=== PATIENT | female | born 1940 | race Caucasian/White ===

== ENCOUNTER → 2021-10-13 11:26 | Outpatient (CLI) | payer MEDICARE, SELFPAY ==
--- NOTE | ~2021-10-13 | DEXA_ITS ---
Bone Density Report Name: LINA SIMS Age: 81 Sex: Female Ethnicity: White Date of : 1940 Indication: postmenopausal; screening for osteoporosis; parental hip fracture; height loss; Referring Provider: Tamia Bryant Study: Bone densitometry was performed. Exam Date: October 13, 2021 Accession number: [id number] Bone Density: Region BMD T-score Z-score Classification AP Spine (L2, L3, L4) 1.221 1.3 4.0 Normal Femoral Neck (Left) 0.845 0.0 2.3 Normal Total Hip (Left) 0.981 0.3 2.4 Normal Femoral Neck (Right) 0.900 0.5 2.8 Normal Total Hip (Right) 0.998 0.5 2.5 Normal Total Hip Mean 0.990 0.4 2.5 Normal World Health Organization criteria for BMD impression classify patients as: Normal (T-score at or above -1.0), Osteopenia (T-score between -1.0 and -2.5), or Osteoporosis (T-score at or below -2.5). 10-year Fracture Risk: FRAX not reported because: All T-scores for Spine Total, Hip Total, Femoral Neck at or above -1.0 Previous Exams: Region Exam Age BMD T-score BMD Change BMD Change Date g/cm2 vs Baseline vs Previous AP Spine(L2, L3, L4) 10/13/2021 81 1.221 1.3 0.061* -0.072* 02/14/2018 78 1.293 1.9 0.133* 0.049* 10/04/2014 74 1.244 1.5 0.084* 0.084* 02/11/2009 68 1.160 0.7 Total Hip(Left) 10/13/2021 81 0.981 0.3 0.036* 0.017 02/14/2018 78 0.964 0.2 0.019 -0.025 10/04/2014 74 0.990 0.4 0.044* 0.044* 02/11/2009 68 0.945 0.0 Total Hip(Right) 10/13/2021 81 0.998 0.5 -0.001 -0.022 02/14/2018 78 1.020 0.6 0.021 0.006 10/04/2014 74 1.014 0.6 0.016 0.016 02/11/2009 68 0.999 0.5 *Denotes significance at 95% confidence level, LSC for AP Spine = 0.022 g/cm2, LSC for Total Hip = 0.027 g/cm2 Clinical Information Provided by Patient: Parent has had a hip fracture Has used the following medications: Vitamin D Patient maximum height was 65.0 Menopause Age: 52 No regular weight bearing exercise Drinks caffeinated beverages Onset of menses at age 14 Number of children 2 Impression: The patient has normal bone mass. The patient has risk factors, including: parental hip fracture. The BMD for the AP Spine(L2, L3, L4) decreased, changing by -0.072 since the last DXA exam. Discussion: LOW RISK OF FRACTURE; BONE
--- NOTE | ~2021-10-13 | MM_ITS ---
EXAMINATION: MM screening raphael BI w trudi HISTORY: Screening mammogram TECHNIQUE: Craniocaudal and mediolateral oblique 3-D tomosynthesis images were obtained and synthetic 2-D images were generated. CAD analysis was submitted and interpreted. COMPARISON: No prior mammogram is available for comparison at this institution. BREAST PARENCHYMAL COMPOSITION: There are scattered areas of fibroglandular density. FINDINGS: Scattered benign-appearing calcifications are present. There is no evidence of suspicious m ass, calcification, or architectural distortion to suggest malignancy in either breast. IMPRESSION: 1. No mammographic evidence of malignancy. 2. Recommend routine screening mammography in one year. BI-RADS Category 2: Benign finding(s). Reviewed, dictated and finalized at location A. [place] SALES REPRESENTATIVE
== END ==
PROVIDERS: PCP Family Medicine; Visit Provider Student in an Organized Health Care Education/Training Program
DX: Z12.31 Encounter for screening mammogram for malignant neoplasm of breast (principal); Z78.0 Asymptomatic menopausal state
CPT/HCPCS: 77063; 77067; 77080

== ENCOUNTER 2022-02-12 16:45 | Outpatient (RCR) | payer MEDICARE, SELFPAY ==
--- NOTE | 2022-01-02 14:37 | PTOPEVAL ---
PHYSICAL THERAPY EVALUATION AND PLAN OF CARE 01-02-22 Thank you for referring Mariana Jones to [facility] for the diagnosis of gait abnormality. She is scheduled to be seen for therapy? 2 x/week for 3 weeks. Please review, sign, date and return this plan of care LAKE. I agree with and certify that the following plan of care is medically necessary. Referring Physician Date Attending Provider: Yvonne Noova MD Past Medical History Source of Past Medical History Patient Neurological History Hx Neurological Disorders No Significant History Cardiovascular History Hx Hypertension Yes: meds Respiratory History Hx Other Respiratory Disorders Yes: neuorgenetic cough- meds control Gastrointestinal History Hx Gastroesophageal Reflux Disease Yes Hx Hernia Yes: surgical repair Hx Other Gastrointestinal Disorders Yes: have diarrhea when nervous Genitourinary History Hx Genitourinary Disorders No Significant History Musculoskeletal History Hx Orthopedic Surgery Yes: B TKR and B shoulder replacements Endocrine History Hx Endocrine Disorders No Significant History Other History 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 Hx Other Medical Conditions Yes: lymphedema of B LE's; obesity-weight 246#, lost 52# recently Evaluation Information Diagnosis gait abnormality Onset Jul 2021 Subjective Information gradually started having more Query Text:As Reported By Patient/ problems with walking and Family balance; have not had any falls, but have had loss of balance with turning around; Prior Level of Function Activity Level (Last 3 Months) Occupation retired Activity of Daily Living Ability Independent Indoor/Home Mobility Independent Community Mobility Independent Stairs Ability Independent Functional Cognition (Planning, Shopping Independent , Taking Medications) Cooking Yes Cleaning Yes Laundry Yes Shopping NO Driving Yes Home Setting Home Type House,Multiple Levels Environmental Barriers Railing, Bilateral,Stairs, Greater than 4 Living Situation With Spouse Mobility Assistive Devices (Used Last 3 None Months) Comments Additional Prior Level of Function have basement, but do not need Comments to go down there very often, laundr
--- NOTE | 2022-01-23 13:41 | PCPTNOTE ---
Patient called & cancelled scheduled appointment this date due to having a COVID Exposure.
--- NOTE | 2022-01-25 11:46 | PTOPEVAL ---
PHYSICAL THERAPY REEVALUATION AND UPDATED PLAN OF CARE 01-25-22 Refer to the clinical summary below, for a comparison of her status today with the initial evaluation. The goals were partially achieved. Continue PT treatment 2x/wk for 3 weeks, to further increase her LE strength and dynamic balance, with progression of HEP. Thank you for referring Mariana Jones to [facility].? Please review, sign, date and return this updated plan of care LAKE. I agree with and certify that the following plan of care is medically necessary. Referring Physician Date Attending Provider: Yvonne Novoa MD Subjective Information Mariana reports: feel like Query Text:As Reported By Patient/ walking is little more steady, Family but not really walking out in the community and unsteady when on concrete or uneven surfaces; have been doing exercises at home; have not fallen, but lost balance with turning to pick something up off floor, caught herself by holding onto a near by chair; Pain Assessment Self Report Self Report Pain Level 0 Pain Score Pain Score 0: Self Report Gross Lower Extremity Strength functional strength testing R and L LE: - single leg standing R 5/ L 1 second - supine SLR R 21/L 20 reps ; bridge- small lift, hips just clear mat x 21 reps; - side lying hip abduction R to 0' x 20 /L to 0' x 20 reps; Balance Assessment Baeza Balance Assessment Sitting to Standing Independent w/out Hands Unsupported Stance Ability Safely- 2 minutes Sitting Unsupported, Feet on Floor Safely- 2 minutes Standing to Sitting Safely, Minimal Hand Use Transfer Ability Safely, Minimal Hand Use Unsupported Stance- Eyes Closed Safely, 10 seconds Unsupported Stance- Feet Together Independent, 1 minute Reaching Forward while Standing Confidently, 10 inches extension supervisor Object From Floor Independent/Safe Look Behind Shoulder - Standing Shifts Weight Well Turning 360 Degrees Turns Bilateral, < 4 secs Unsupported Stance, Alternating Feet on (I)- 8 Steps in > 20 secs Stair Unsupported Tandem Stance Holds Tandem- 30 seconds Unilateral Leg Stance Lifts Leg/Unable to Hold BAEZA Balance Evaluation Total Score (/56 51 points) Comments no loss of balance with 360' turn to R and L 1x Time Up Go (TUG) Timed Up and Go Test (TUG) (Seconds) 14 Assistive Devices None 5 Time Sit t
--- NOTE | 2022-02-19 11:51 | PCPTNOTE ---
Patient called & cancelled scheduled re-evaluation this date due to having to move her into a different facility. She has not been reschedule at this time.
--- NOTE | 2022-03-12 11:43 | PCPTNOTE ---
PHYSICAL THERAPY DISCHARGE REPORT 03-12-22 Attending Provider: Yvonne Novoa MD Patient:Mariana Jones Date of :1940 Mrs. Jones has not returned for any further treatments since 02/12/2022, therefore she will be discharged at this time. Mariana received 8 PT sessions from January 02 to February 12. She called and canceled 2 appointments. The goals were not assessed. Thank you for referring Mrs. Jones to [facility]. Please review, sign, date and return this discharge summary LAKE. I have been updated about the patient's current status and I agree with discharge from the above service at this time. Referring Physician Date
== END 2022-03-12 14:58 | disposition home or self-care (01) ==
LOC: ANHPT 16:45
PROVIDERS: PCP Family Medicine; Visit Provider Family Medicine
DX: R26.9 Unspecified abnormalities of gait and mobility (principal)
CPT/HCPCS: 97110; 97112; 97161; 97530

== ENCOUNTER → 2022-07-06 09:53 | Outpatient (CLI) | payer MEDICARE, SELFPAY ==
--- NOTE | ~2022-07-06 | CT_ITS ---
EXAMINATION: CT abdomen pelvis w con DATE: 07/06/2022 10:26 INDICATION: Right groin pain TECHNIQUE: Computed tomography (CT) of the abdomen and pelvis was performed with 100 CC Omnipaque 350 intravenous contrast. Automated exposure control and iterative reconstruction technique were employe d. Exam dose: 921.96 mGy-cm total exam DLP. COMPARISON: None. FINDINGS: Middle and bilateral lower lobe calcified pulmonary granulomas. No consolidation at the leah g bases. Cardiomegaly. No pericardial or pleural effusion. There are calcified hepatic and splenic granulomas. No hepatic, splenic, pancreatic or adrenal space- occupying mass lesion. Status post cholecystectomy. No bile duct or pancreatic duct dilatation. Occasional bilateral renal cysts, more numerous on the right, the largest situated on the left, measu ring 1.5 cm. No suspicious solid lesion of either kidney is evident. No urinary tract calculus or hyd roureteronephrosis. There is atherosclerotic calcification but normal caliber of the abdominal aorta. No intraperitoneal or retroperitoneal or pelvic mass lesion or adenopathy or ascites. The urinary bladder is unremarkable. Retroverted uterus. No evidence of appendicitis. No bowel obstruction, bowel wall thickening, pneumatosis or intraperiton eal free air. Prominent fat-containing umbilical hernia. There is a large right lateral upper abdominal wall spigelian hernia containing nonobstructed nonstra ngulated hepatic flexure of colon. Prominent degenerative changes of the lower thoracic and lumbar spine, including prominent degenerati ve disc disease, degenerative changes apophyseal joints with associated grade 1 anterolisthesis at L3 -4 and L4-5. No suspicious osteolytic or osteoblastic lesions are noted. Moderately prominent sliding hiatal hernia. IMPRESSION: Upper right lateral abdominal wall spigelian hernia containing nonobstructed hepatic fle xure of colon Large fat-containing umbilical hernia Status post cholecystectomy Moderately large hiatal hernia Cardiomegaly Reviewed, dictated and finalized at Location A. Reviewed, dictated and finalized at location A. IMPRESSION: Upper right lateral abdominal wall spigelian hernia containing non obstructed hepatic flexure of colon Large fat-containing umbilical hernia Status post cholecystectomy Moderately large hiatal hernia Cardiomegaly
[2022-07-06 10:13] LABS: Estimated Glomerular Filt Rate 53
== END ==
PROVIDERS: PCP Family Medicine; Visit Provider Physician Assistant Medical
DX: R10.30 Lower abdominal pain, unspecified (principal); K44.9 Diaphragmatic hernia without obstruction or gangrene; Z90.49 Acquired absence of other specified parts of digestive tract; K42.9 Umbilical hernia without obstruction or gangrene; I51.7 Cardiomegaly
CPT/HCPCS: 74177; Q9967

== ENCOUNTER 2022-07-12 11:00 | Outpatient (RCR) | payer MEDICARE, SELFPAY ==
--- NOTE | 2022-05-30 16:49 | PTOPEVAL1 ---
Assessment and note entered by Angy Fiore, PT Evaluation Information Assessment Status Evaluation Diagnosis gait abnormality and mobility deficits Reported Pain Level Pain Score 0: Self Report Assessment PT Clinical Summary Pt presents w/ c/o balance, walking, and mobility issues. Denies pain, dizziness, or falls. Evaluation demo's decreased mobility with sit<> stands, decreased gait speed with increased RR, decreased hip and LE strength, abnormal postures and alignment. Pt goals to return to [place] with her sister in order to walk in water for fitness. Pt will benefit from physical therapy to address deficits, improve mobility, ambulation through strengthening, endurance training, education, and balance training. Plan of Care Interventions Gait Training,Neuro Re-education,Therapeutic Activities,Therapeutic Exercise PT Services Indicated Yes Treatment Frequency and 0-2x weekly x 7 weeks secondary to scheduling Duration conflicts These treatments will address the objective and functional deficits as defined above. The patient will be advanced safely and appropriately in order for the patient to progress towards his/her prior level of function. Additional exercises will be introduced and as well as a comprehensive home exercise program upon discharge, if needed, ?to ensure carryover of functional gains achieved in the clinic. This treatment plan has been reviewed and agreement upon by the patient.
--- NOTE | 2022-07-12 12:02 | PTOPDC ---
Assessment and note entered by Angy Fiore, PT Assessment Status Discharge Diagnosis gait abnormality Subjective Information Reports she is pleased with her and her sister's progress with therapy. States she still feels her walking isn't right . States no pain or dizziness , feels like she will be walking straight then stray to one side or the other. Reports she is no longer loosing her balance with looking to one side and shuffling to catch herself since starting therapy. Reported Pain Level Pain Score 0: Self Report Additional Pain Score Comments Right hip with lifting for stairs, no pain in standing or sitting Assessment PT Clinical Summary Pt has attended therapy consistently for her balance and ambulation skills. She show's increased distance with 2 min walk test, decreased gait abnormality with same test, improved ability to sit<>stand faster and without use of compensatory measures, increased overall LE strength bilat, and improved endurance demo'd by improved stair ability with only mild increased breathing. Pt ambulation is well within functional limits for her ADLs and outside activities. Thus patient is being discharged from therapy services at this time for current POC. Plan of Care PT Services Indicated No
== END 2022-07-12 13:51 | disposition home or self-care (01) ==
LOC: ANHPT 11:00
PROVIDERS: PCP Family Medicine; Visit Provider Family Medicine
DX: R26.9 Unspecified abnormalities of gait and mobility (principal)
CPT/HCPCS: 97110; 97161; 97530

== ENCOUNTER → 2022-09-26 15:30 | Outpatient (CLI) | payer MEDICARE, SELFPAY ==
--- NOTE | ~2022-09-26 | XR_ITS ---
EXAM: XR lumbar spine min 4V DATE: 09/26/2022 16:07 HISTORY: M25.551 - Pain in right hip . COMPARISON: CT abdomen and pelvis 07/06/2022. FINDINGS: Cholecystectomy clips. Right lower lobe calcified granuloma. 5 nonrib-bearing lumbar-type v ertebral bodies. Pedicles intact. 3 mm anterolisthesis at L3-4. 5 mm anterolisthesis at L4-5. Vertebr al body heights preserved. Multilevel disc space narrowing, marginal osteophytosis and vacuum phenome non. Incidental note of severe degenerative disc disease in the lower thoracic spine. Multilevel gilda re facet sclerosis and hypertrophy. Multilevel interspinous narrowing. No pars defect. No fracture or dislocation. Minimal aortic calcifications without evident aneurysm. IMPRESSION: Multilevel grade 1 lumbar listheses. Multilevel severe degenerative lumbar disc disease. Multilevel severe lumbar facet arthropathy. Reviewed, dictated and finalized at location K. ING INSTALLER
--- NOTE | ~2022-09-26 | XR_ITS ---
EXAM: XR hip RT min 3V w AP pelvis DATE: 09/26/2022 16:07 HISTORY: M25.551 - Pain in right hip . COMPARISON: CT abdomen and pelvis 07/06/2022. FINDINGS: Normal mineralization. No fracture or dislocation. No lytic or blastic lesion. Degenerativ e changes in the lower lumbar spine, bilateral SI joints, bilateral hips, and pubic symphysis. Pelvic and hip enthesopathy. No erosion or periosteal change. Soft tissue calcifications overlying the righ t iliac crest, possible injection granulomas. Pelvic phleboliths. IMPRESSION: Mild right hip osteoarthritis. Osteitis pubis. Reviewed, dictated and finalized at location K. NT AND TODDLER TEACHER
== END ==
PROVIDERS: PCP Family Medicine; Visit Provider Family Medicine
DX: M25.551 Pain in right hip (principal); M43.06 Spondylolysis, lumbar region; M51.36 Other intervertebral disc degeneration, lumbar region; M16.11 Unilateral primary osteoarthritis, right hip; M86.8X8 Other osteomyelitis, other site
CPT/HCPCS: 72110; 73502

== ENCOUNTER 2022-10-25 10:40 | Outpatient (CLI) | payer MEDICARE, SELFPAY ==
--- NOTE | ~2022-10-25 | US_ITS ---
EXAMINATION: US carotid duplex BI DATE: 10/25/2022 11:33 INDICATION: Visual loss. TECHNIQUE: Grayscale, color Doppler, and pulsed Doppler images of the cervical carotid arteries were obtained. The degree of vessel stenosis is placed in one of the following categories: normal, <50%, 5 0-69%, >=70% but less than near-occlusion, near-occlusion, or total occlusion. Note that percent sten osis relative to normal distal artery lumen diameter is indirectly measured from velocity measurement s as described by Wesley, et al. Radiology 2003; 229:340-346. Notes: Normal: Peak systolic velocity <125 centimeters/sec and no plaque <50%. Peak systolic velocity <125 ( EDV <40; ICA/CCA PSV ratio <2.0; used these factors only a tandem lesions or low cardiac output or co ntralateral disease) 50-69 %: PSV 125-230 (EDV 40-100; ratio 2-4) >= 70% but less than near occlusion: PSV greater than 230 (EDV > 100; ratio> 4.0) Near Occlusion: PSV that is variable; markedly narrowed lumen Occlusion: Absent flow on color/spectral Doppler and no lumen on feng scale. COMPARISON: None. FINDINGS: RIGHT: The right common carotid artery (CCA) peak systolic velocity (PSV) is 125 cm/s. The right internal ca rotid artery (ICA) PSV is 91 cm/s. The right ICA end-diastolic velocity (EDV) is 21 cm/s. The right I CA/CCA PSV ratio is 0.7. The external carotid artery (ECA) PSV is 77 cm/s. There is antegrade flow in the right vertebral artery. LEFT: The left CCA PSV is 124 cm/s. The left ICA PSV is 70 cm/s. The left ICA EDV is 18 cm/s. The left ICA/ CCA PSV ratio is 0.6. The ECA PSV is 77 cm/s. There is antegrade flow in the left vertebral artery. IMPRESSION: 1. Less than 50% stenosis in the right internal carotid artery by sonographic criteria. 2. Less than 50% stenosis in the left internal carotid artery by sonographic criteria. Reviewed, dictated and finalized at location L. NSION COURSE COORDINATOR IMPRESSION: 1. Less than 50% stenosis in the right internal carotid artery by sonographic sandeep langston. 2. Less than 50% stenosis in the left internal carotid artery by sonographic george crane.
== END 2022-10-25 10:41 | disposition home or self-care (01) ==
PROVIDERS: PCP Family Medicine; Visit Provider Family Medicine
DX: H54.7 Unspecified visual loss (principal); Z86.73 Personal history of transient ischemic attack (TIA), and cerebral infarction without residual deficits; I65.23 Occlusion and stenosis of bilateral carotid arteries
CPT/HCPCS: 93880

== ENCOUNTER 2022-10-30 08:31 | Outpatient (CLI) | payer MEDICARE, SELFPAY ==
--- NOTE | ~2022-10-30 | MR_ITS ---
EXAMINATION: MR brain/brain stem wo con DATE: 10/30/2022 09:19 INDICATION: Vision loss. Transit ischemic attack. TECHNIQUE: Magnetic resonance imaging (MRI) of the brain and brainstem was performed without intraven ous contrast. COMPARISON: Brain MRI 12/22/2013 FINDINGS: There are scattered areas of nonspecific increased T2-weighted signal intensity in the cere bral white matter. There is no intracranial hemorrhage, acute infarction, or abnormal intracranial ma ss lesion. The ventricles are normal in size. There is mild mucosal thickening in the ethmoid sinuses . There are likely changes of ocular lens replacement surgeries. The mastoid air cells are normal. IMPRESSION: 1. Worsened mild nonspecific cerebral white matter disease, which likely represents chronic small ves keegan ischemic disease. Reviewed, dictated and finalized at location A. TURE REPAIRER IMPRESSION: 1. Worsened mild nonspecific cerebral white matter disease, which likely repres ents chronic small vessel ischemic disease.
== END 2022-10-30 08:32 | disposition home or self-care (01) ==
PROVIDERS: PCP Family Medicine; Visit Provider Family Medicine
DX: H54.7 Unspecified visual loss (principal); Z86.73 Personal history of transient ischemic attack (TIA), and cerebral infarction without residual deficits
CPT/HCPCS: 70551

== ENCOUNTER 2022-11-06 08:34 | Outpatient (CLI) | payer MEDICARE, SELFPAY ==
--- NOTE | 2022-11-06 08:40 | ECHO_ITS ---
Patient Info Name: Mariana Jones Age: 82 years : 1940 Gender: Female Ht: 62 in Wt: 235 lbs BSA: 2.22 m2 HR: 75 bpm BP: 165 / 93 mmHg Technical Quality: Good Exam Date: 11/06/2022 8:44 AM Exam Location: [facility] Patient Status: Outpatient Admit Date: 11/06/2022 Staff Ordering Physician: Yvonne Novoa MD Unit Aide Tech: Audrey Tran RDCS Attending Provider: Yvonne Novoa MD Referring Physician: Bright CARD; Exam Type: CA echo doppler color flow Study Info Indications H54.7 - Unspecified visual loss Complete two-dimensional, color flow and Doppler transthoracic echocardiogram is performed. Summary 1. Complete two-dimensional, color flow and Doppler transthoracic echocardiogram is performed. 2. Left ventricular chamber dimension is normal. 3. Left ventricular systolic function is normal, estimated at 60-65%. 4. There is moderate concentric increased left ventricular wall thickness. 5. The left ventricular diastolic function is grade I diastolic dysfunction. 6. E/e' 10 is mildly elevated. 7. Global longitudinal strain is normal at -17.6%. 8. There is mild aortic valve sclerosis. 9. No pulmonary hypertension, estimated pulmonary arterial systolic pressure is 27 mmHg. Left Ventricle Global longitudinal strain is normal at -17.6%. E/e' 10 is mildly elevated. Left ventricular chamber dimension is normal. Left ventricular systolic function is normal, estimated at 60-65%. There is moderate concentric increased left ventricular wall thickness. The left ventricular diastolic function is grade I diastolic dysfunction. Right Ventricle Right ventricular systolic function is normal and with normal TAPSE 2.6 cm. Right ventricular chamber dimension is normal. Left Atria Left atrial chamber dimension is normal. Right Atria Right atrial chamber dimension is normal. Aortic Valve The aortic valve is trileaflet. There is mild aortic valve sclerosis. There is no aortic valve stenosis. There is no aortic valve regurgitation. Pulmonic Valve There is no pulmonic regurgitation. Mitral Valve There is no mitral valve stenosis. There is no mitral valve regurgitation. Tricuspid Valve There is no tricuspid valve regurgitation. No pulmonary hypertension, estimated pulmonary arterial systolic pressure is 27 mmHg. Pericardium/Pleural There is no pericardial effusion. Inferior Vena Cava Normal inferior vena cava with >50% collapse upon inspiration consistent with normal right atrial pressure, 5 mmHg. Aorta The aortic root size at the sinus of Valsalva is normal. Left Ventricular Outflow Tract Name Value Normal LVOT 2D LVOT Diameter 1.9 cm LVOT Doppler LVOT Peak Gradient 4 mmHg LVOT Mean Gradient 3 mmHg LVOT VTI 24 cm LVOT VTI/AV VTI Ratio 0.8 LVOT Stroke Volume 71 ml LVOT CO 5.6 l/min LVOT CI 2.5 l/min/m2 Pulmonic Valve
== END 2022-11-06 08:35 | disposition home or self-care (01) ==
PROVIDERS: PCP Family Medicine; Visit Provider Family Medicine
DX: H54.7 Unspecified visual loss (principal); Z86.73 Personal history of transient ischemic attack (TIA), and cerebral infarction without residual deficits; I35.8 Other nonrheumatic aortic valve disorders
CPT/HCPCS: 93306

== ENCOUNTER → 2022-12-17 13:22 | Outpatient (CLI) | payer MEDICARE, SELFPAY ==
--- NOTE | ~2022-12-17 | MM_ITS ---
EXAMINATION: MM screening raphael BI w trudi HISTORY: Screening mammogram TECHNIQUE: Craniocaudal and mediolateral oblique 3-D tomosynthesis images were obtained and synthetic 2-D images were generated. CAD analysis was submitted and interpreted. COMPARISON: October 13, 2021 bilateral screening mammogram BREAST PARENCHYMAL COMPOSITION: There are scattered areas of fibroglandular density. FINDINGS: There is no evidence of suspicious mass, calcification, or architectural distortion to sugg est malignancy in either breast. There has been no suspicious interval change. IMPRESSION: 1. No mammographic evidence of malignancy. 2. Recommend routine screening mammography in one year. BI-RADS Category 1: Negative Reviewed, dictated and finalized at location B.
== END ==
PROVIDERS: PCP Family Medicine; Visit Provider Family Medicine
DX: Z12.31 Encounter for screening mammogram for malignant neoplasm of breast (principal)
CPT/HCPCS: 77063; 77067

== ENCOUNTER → 2023-01-08 12:28 | Outpatient (CLI) | payer MEDICARE, SELFPAY ==
--- NOTE | ~2023-01-08 | MR_ITS ---
MRI of the lumbar spine Clinical History: Radiculopathy Technique: Axial T2-weighted images, and sagittal T1-weighted, T2-weighted, and T2 fat-sat images wer e acquired. Findings: No fracture identified. 4 mm retrolisthesis of L1 over L2 present. 4 mm retrolisthesis of L 2 over L3 present. 3 mm anterolisthesis of L4 over L5 present. No suspicious bone marrow signal abnor mality identified. At L1-L2, there is advanced degenerative disc narrowing. There is minimal disc osteophyte complex wit h mild facet arthropathy. No leann spinal canal stenosis. There is mild right neural foraminal narrow ing. Left neural foramen preserved. At L2-L3, there is moderate to advanced degenerative disc narrowing. There is disc bulge and moderate to advanced bilateral facet arthropathy. There is severe bilateral neural foraminal narrowing. No fr ank central canal stenosis. L3-L4, diffuse disc bulge and advanced facet arthropathy result in severe thecal sac compression/spin al canal stenosis. There is moderate to severe bilateral neural foraminal narrowing, left worse than right. At L4-L5, there is diffuse disc bulge and advanced facet arthropathy. Probable tiny annular fissure. No leann central canal stenosis. There is minimal bilateral neural foraminal narrowing. At L5-S1, there is advanced facet arthropathy with minimal disc bulge. No central canal stenosis. No leann neural foraminal narrowing. Paravertebral soft tissues are unremarkable. Impression: Severe degenerative spondylosis at L3-L4, as detailed above. Moderate degenerative spondylosis at L2-L3. Mild degenerative change at the remaining lumbar levels. 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 Reviewed, dictated and finalized at [facility]. Impression: Severe degenerative spondylosis at L3-L4, as detailed above. Moderate degenerative spondylosis at L2-L3. Mild degenerative change at the remaining lumbar levels. 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
== END ==
PROVIDERS: PCP Family Medicine; Visit Provider Physical Medicine & Rehabilitation
DX: M47.26 Other spondylosis with radiculopathy, lumbar region (principal)
CPT/HCPCS: 72148

== ENCOUNTER 2023-11-01 15:42 | Emergency (ER) | payer MEDICARE, SELFPAY ==
--- NOTE | ~2023-11-01 | CT_ITS ---
EXAMINATION: CT brain wo con INDICATION: Head injury COMPARISON: None TECHNIQUE: Standard unenhanced head CT. The dose-length product (DLP) was 605.33 mGy-cm. The mA was a djusted according to patient size. Iterative reconstruction technique was employed. FINDINGS: No acute intraparenchymal hemorrhage. No evidence of mass lesion. No evidence of acute infa rction. There is mild periventricular and subcortical hypodensity probably related to small vessel is chemic disease. There is mild prominence of the sulci and ventricles related to cerebral atrophy. Int racranial calcified cerebral atherosclerosis is noted. No extra-axial collections. No mass effect or midline shift. Changes in the globes are likely from ocular lens surgery. There is mild mucosal thick ening of the paranasal sinuses. IMPRESSION: 1. No acute intracranial abnormality. 2. Age related findings. Reviewed, dictated and finalized at location F. NOLOGY EDUCATION TEACHER
[2023-11-01 16:26] VITALS: BP 151/64; PULSE 79; RESP 18; TEMP 36.4; O2SAT 100
--- NOTE | 2023-11-01 17:33 | ED.FALL ---
HPI - Fall General Chief Complaint: Fall Stated Complaint: fall on saturday Time Seen by Provider: 11/01/23 16:31 History of Present Illness HPI Narrative: 83-year-old female presenting to the emergency department for evaluation after having a fall on Saturday. Patient states she was helping her fiance and she was trying to grab some towels when she turned around too quickly and lost her balance. Patient states while she was attempting to regain her balance she ended up running into the closed bathroom door with her head. Patient did strike her forehead but denies any loss of consciousness. Patient states that she did have some bruising on her forehead and over the last few days that bruising has tracked down to her eyes. 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 Candidiasis of breast Chronic renal insufficiency, stage III (moderate) Essential hypertension Gastroesophageal reflux Insomnia Localized edema Lymphedema Mixed hyperlipidemia Mycosis fungoides Obesity, Class III, 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 Treadmill stress test negative for angina pectoris Vitamin D deficiency Surgical History Surgical History H/O dilation and curettage H/O hernia repair H/O shoulder replacement H/O sinus surgery History of cataract surgery History of cholecystectomy History of hysteroscopy History of knee replacement Family History Family History Father Acute myocardial infarction Mother Parkinsons Daughter Cervical cancer Other Family history of malignant neoplasm of cervix Social History Social History Smoking status: Never smoker Second hand tobacco smoke exposure: No Alcohol intake: never Substance use: never Substance use type: does not use Lack of Transportation: No Lack of Food: Never True Current Housing: I Have Housing Concerned About Future Housing: No Difficulty Paying Gas/Electric Bills: No Difficulty Paying for Meds: No Currently Unemployed: No Education: High School Diploma/GED Difficulty w/ Childcare or Family Care: No Living arrangements: with family Occupation/Education: retired Gender identity (if verbalized by the patient): Female Spiritual care concerns: No Agree to blood products: Yes Exam Narrative: APPEARANCE: Well appearing, no pain, no distress, well-nourished. HEAD: normocephalic, ecchymosis to forehead and under eyes. EYES: PERRLA/EOMI, conjunctivae clear. NOSE: Normal no drainage EARS:TMS clear with good light reflex. THROAT: Pharynx clear, no exudate. NECK: Supple. No adenopathy, no masses. RESPIRATORY: Airway patent, respirations nonlabored. Clear to auscultation bilaterally, no rales, rhonchi, wheezing. CARDIOVASCULAR: Regular rate and rhythm without murmurs rubs or gallops. ABDOMINAL: Soft, nontender, nondistended, normal bowel sounds MUSCULOSKELETAL: Moves all extremities. Strength/ROM intact, No edema, No calf tenderness. NEURO: Alert. Cranial nerves II through XII intact. Good gait. Good coordination SKIN: Warm, dry. No
[2023-11-01 18:40] VITALS: BP 150/60; PULSE 80; RESP 18; TEMP 36.6; O2SAT 99
== END 2023-11-01 18:40 | disposition home or self-care (01) ==
LOC: ANHED 18:10
PROVIDERS: Emergency Provider Emergency Medicine; PCP Family Medicine
DX: S00.93XA Contusion of unspecified part of head, initial encounter (principal); I12.9 Hypertensive chronic kidney disease with stage 1 through stage 4 chronic kidney disease, or unspecified chronic kidney disease; N18.30 Chronic kidney disease, stage 3 unspecified; E78.2 Mixed hyperlipidemia; W19.XXXA Unspecified fall, initial encounter
CPT/HCPCS: 70450; 99284

== ENCOUNTER 2024-01-29 10:05 | Outpatient (CLI) | payer MEDICARE, SELFPAY ==
--- NOTE | ~2024-01-29 | MM_ITS ---
EXAMINATION: MM screening raphael BI w trudi HISTORY: Screening TECHNIQUE: Craniocaudal and mediolateral oblique 3-D tomosynthesis images were obtained and synthetic 2-D images were generated. CAD analysis was submitted and interpreted. COMPARISON: Comparison to multiple prior studies sequentially, with oldest reviewed study dated 10/13. BREAST PARENCHYMAL COMPOSITION: The breasts are extremely dense, which lowers the sensitivity of mamm ography. FINDINGS: There is no evidence of suspicious mass, calcification, or architectural distortion to sugg est malignancy in either breast. There has been no suspicious interval change. IMPRESSION: 1. No mammographic evidence of malignancy. 2. Recommend routine screening mammography in one year. BI-RADS Category 1: Negative Reviewed, dictated and finalized at location B.
== END 2024-01-29 10:06 ==
PROVIDERS: PCP Family Medicine; Visit Provider Family Medicine
DX: Z12.31 Encounter for screening mammogram for malignant neoplasm of breast (principal)
CPT/HCPCS: 77063; 77067

== ENCOUNTER 2024-07-14 06:04 | Emergency (ER) | payer MEDICARE, SELFPAY ==
--- NOTE | ~2024-07-14 | CT_ITS ---
EXAMINATION: CT lumbar spine wo con DATE: 07/14/2024 08:02 INDICATION: Back pain. TECHNIQUE: Computed tomography (CT) of the lumbar spine was performed without intravenous contrast. A utomated exposure control and iterative reconstruction technique were employed. The dose-length produ ct was 1386.85 mGy-cm. COMPARISON: Lumbar spine MRI 01/08/2023 FINDINGS: Calcified left lung nodules and calcified mediastinal lymph nodes are consistent with old g ranulomatous disease. Calcifications in the spleen are consistent with old granulomatous disease. The re is a moderate-sized sliding hiatal hernia. There is 5 degrees levocurvature of thoracolumbar spine . There is 3 mm retrolisthesis of L2 on L3 and 3 mm anterolisthesis of L3 on L4 and L4 on L5. There i s mild chronic anterior wedging of T11-L1 vertebral bodies. There is severely decreased disc height a t L1-L2 and L2-L3, mildly decreased disc height at L3-L4 and L4-L5, and severely decreased disc heigh t at L5-S1. The following disc levels are specifically discussed: L1-L2: The disc is bulging. There is mild bilateral facet joint osteoarthritis. There is mild bilater al neural foraminal stenosis. There is mild central canal stenosis. L2-L3: The disc is bulging. There is mild bilateral facet joint osteoarthritis. There is moderate iftikhar ateral neural foraminal stenosis. There is mild central canal stenosis. L3-L4: The disc is bulging. There is severe bilateral facet joint osteoarthritis. There is moderate b ilateral neural foraminal stenosis. There is severe central canal stenosis. L4-L5: The disc is bulging. There is severe right facet joint osteoarthritis. There is ankylosis of l eft facet joint with severe hypertrophy. There is mild right and moderate left neural foraminal steno sis. There is mild central canal stenosis. L5-S1: The disc is bulging. There is severe bilateral facet joint osteoarthritis. There is mild bilat eral neural foraminal stenosis. There is mild central canal stenosis. IMPRESSION: 1. Severe lumbar spondylosis, stable from 01/08/2023. Reviewed, dictated and finalized at location A. ENT SAFETY ATTENDANT
[2024-07-14 06:04] VITALS: BP 143/91; PULSE 77; RESP 20; TEMP 36.6; O2SAT 100
--- NOTE | 2024-07-14 06:13 | ED.BACK ---
HPI - Back Pain/Injury General Chief Complaint: Back Pain/Injury <Yaa Salas MD - Last Filed: 07/15/24 09:04> Stated Complaint: back pain <Yaa Salas MD - Last Filed: 07/15/24 09:04> Time Seen by Provider: 07/14/24 06:13 <Yaa Salas MD - Last Filed: 07/15/24 09:04> Source: patient and RN notes reviewed <Yaa Salas MD - Last Filed: 07/15/24 09:04> Mode of arrival: EMS <Yaa Salas MD - Last Filed: 07/15/24 09:04> Limitations: no limitations <Yaa Salas MD - Last Filed: 07/15/24 09:04> History of Present Illness HPI Narrative: Patient presents with acute on chronic low back pain. She visits a pain specialist clinic for this and there are plans for a procedure (radioablation?) In August. She does not know what pain medications she takes at baseline although she states that they do not really work. She denies any paresthesias. Lately she traveled to see her granddaughter perform as the lead in a school play. There had been a bedroom for her on the 2nd floor but she knew that she would not be able to manage this so instead she slept on the couch and thinks this might have worsened it. She was also in and out of a vehicle that was high off the ground. She got home Saturday night was in incredible pain. Other than this no acute direct trauma or injury. She denies any fever, abdominal pain, chronic steroids, or cancer. She has had weight loss of 55 lb but it has been intentional. She denies any dysuria or hematuria. <Yaa Salas MD - Last Filed: 07/15/24 09:04> Related Data Home Medications: Home Medications Medication Instructions Recorded Confirmed docusate sodium 100 mg capsule 100 mg PO DAILY 05/26/20 05/22/24 (Colace) <Yaa Salas MD - Last Filed: 07/15/24 09:04> Allergies/Adverse Reactions: Allergies Allergy/AdvReac Type Severity Reaction Status Date / Time pentazocine Allergy Intermediate HALLUCINATI Verified 05/22/24 12:13 ONS gabapentin Allergy Unknown Hives Verified 05/22/24 12:13 <Yaa Salas MD - Last Filed: 07/15/24 09:04> [facility] Past Medical History Medical History: Medical History Anxiety [place]-Walker grade 2 cystocele [place]-Walker grade 3 rectocele Candidiasis of breast Chronic back pain Chronic renal insufficiency, stage III (moderate) Essential hypertension Gastroesophageal reflux Insomnia Localized edema Lymphedema Mixed hyperlipidemia Mycosis fungoides Obesity, Class III, 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 Treadmill stress test negative for angina pectoris Vitamin D deficiency <Yaa Salas MD - Last Filed: 07/15/24 09:04> Surgical History Surgical History: Surgical History H/O dilation and curettage H/O hernia repair H/O shoulder replacement H/O sinus surgery History of cataract surgery History of cholecystectomy History of hysteroscopy History of knee replacement <Yaa Salas MD - Last Filed: 07/15/24 09:04> Family History Family History: Family History Father Acute myocardial infarction Mother Parkinsons Daughter Cervical cancer Other Family history of malignant neoplasm of cervix <Yaa Salas MD - Last Filed: 07/15/24 09:04> Social History Social History: Social History Smoking status: Never smoker Second hand tobacco smoke exposure: No Alcohol intake: never Substance use: never Substance use type: does not use Lack of Transportation: No Lack of Food: Never True Current Housing: I Have Housing Concerned About Future Housing: No Difficulty Paying Gas/Electric Bills: No Difficulty Paying for Meds: No Currently Unemployed: No Education: High School Diploma/GED Difficulty w/ Childcare or Family Care: No Living arrangements: with family Occupation/Education: retired Gender identity (if verbalized by the patient): Female Spiritual care concerns: No Agree to blood products: Yes <Yaa Salas MD - Last Filed: 07/15/24 09:04> Exam Narrative: GENERAL: Well-appearing, well-nourished, in mild acute distress with tremulous voice. HEAD: Normocephalic, atraumatic. EYES: Non injected, non icteric ENT: Nares clear, no rhinorrhea or epistaxis. NECK: Supple. CHEST: Speaking in full sentences. No respiratory distress. HEART: Regular rate and rhythm. ABDOMEN: Soft, nondistended. EXTREMITIES:No lower extremity edema. 5/5 strength with bilateral ankle dorsiflexion and plantar flexion. Demonstrates ability to move extremities x4. Straight leg test positive on left. SKIN: Warm, dry, no rash. NEURO: No focal deficits. Alert and oriented x3. No paresthesias in bilateral lower extremities. PSYCH: Normal mood and affect. <Yaa Salas MD - Last Filed: 07/15/24 09:04> Course Reevaluation(s) Reevaluation #1: On re-evaluation patient states she does feel improved but pain is not completely resolved. Imaging was negative. I did have a discussion with the patient regarding expectations for pain management. Patient states she is scheduled to have follow-up with her pain specialist and anticipates they are going to do a nerve ablation at some point. Patient states she has been taking ibuprofen for pain control. Patient will be provided Flexeril to help with muscle spasms and additional narcotic pain medication. Patient and family are comfortable plan for discharge and close follow-up. <Hank Michele MD - Last Filed: 07/14/24 17:31> Vital Signs Vital signs: Vital Signs Temperature 98 F 07/14/24 06:04 Pulse Rate 77 07/14/24 06:04 Respiratory Rate 20 07/14/24 06:04 Blood Pressure 143/91 H 07/14/24 06:04 Pulse Oximetry 100 07/14/24 06:04 Oxygen Delivery Room Air 07/14/24 06:04 Temperature 97.9 F 07/14/24 08:32 Pulse Rate 75 07/14/24 08:32 Respiratory Rate 14 07/14/24 08:32 Blood Pressure 120/93 H 07/14/24 08:32 Pulse Oximetry 99 07/14/24 08:32 Oxygen Delivery Room Air 07/14/24 06:04 <Yaa Salas MD - Last Filed: 07/15/24 09:04> Vital Signs Temperature 98 F 07/14/24 06:04 Pulse Rate 77 07/14/24 06:04 Respiratory Rate 20 07/14/24 06:04 Blood Pressure 143/91 H 07/14/24 06:04 Pulse Oximetry 100 07/14/24 06:04 Oxygen Delivery Room Air 07/14/24 06:04 Temperature 97.9 F 07/14/24 08:32 Pulse Rate 75 07/14/24 08:32 Respiratory Rate 14 07/14/24 08:32 Blood Pressure 120/93 H 07/14/24 08:32 Pulse Oximetry 99 07/14/24 08:32 Oxygen Delivery Room Air 07/14/24 06:04 <Hank Michele MD - Last Filed: 07/14/24 17:31> MDM - Back Pain/Injury MDM Narrative Medical decision making narrative: Patient presents with acute on chronic back pain. She rarely goes to pain management and there are plans for an upcoming procedure (radiofrequency?) in August. No recent trauma/injury although recent travel involved a lot of new movements, different sleeping environment, and increased exertion. In the emergency department she is afebrile with vital signs notable for mild hypertension. Sensation to the lower extremities is normal bilaterally. Dorsi/plantar flexion is normal bilaterally. Straight leg raise test is positive on the left. Patient's prescriptions are reviewed per database. She was prescribed pregabalin and 30 tablets of [place] 5 mg in March 2024. Prior to that in October of 2023 she had been prescribed tramadol. No apparent interval fills although difficulty logging into prescription monitoring program. Patient states she had brief improvement pain with [place]. Ketorolac ordered. Patient continues to states that this is the worst pain she has ever been in. Will proceed with CT imaging as well as Valium and lidocaine patch and additional acetaminophen. Patient signed out to oncoming attending at the end of my shift. <Yaa Salas MD - Last Filed: 07/15/24 09:04> Differential Diagnosis Differential diagnosis: Likely lumbar radiculopathy, strain of lumbar region and other (acute on chronic back pain) <Yaa Salas MD - Last Filed: 07/15/24 09:04> Discharge Plan Discharge Clinical Impression: Acute on chronic back pain <Yaa Salas MD - Last Filed: 07/15/24 09:04> Patient Disposition: Home, Self-Care <Yaa Salas MD - Last Filed: 07/15/24 09:04> Condition: Stable <Yaa Salas MD - Last Filed: 07/15/24 09:04> Instructions: Antibiotic Form, Back Pain (ED) <Yaa Salas MD - Last Filed: 07/15/24 09:04> Additional Instructions: Ibuprofen for pain control. Flexeril for muscle spasm. [place] as needed for additional pain control. Have close follow-up with your pain specialist. If you have any worsening symptoms then please call or return to the emergency department. <Yaa Salas MD - Last Filed: 07/15/24 09:04> Prescriptions: New cyclobenzaprine 10 mg tablet 10 mg PO BID PRN (Reason: muscle spasm) Qty: 20 0RF hydrocodone-acetaminophen 5-325 mg tablet 1 tablet PO Q8H PRN (Reason: pain) Qty: 14 0RF No Action folic acid 0.8 mg capsule 0.8 mg PO DAILY Qty: 30 0RF cholecalciferol (vitamin D3) 25 mcg (1,000 unit) capsule 50 mcg PO DAILY Qty: 60 0RF docusate sodium [Colace] 100 mg capsule 100 mg PO DAILY aspirin [Adult Low Dose Aspirin] 81 mg tablet,delayed release (DR/EC) 81 mg PO DAILY Qty: 90 0RF diclofenac sodium 3 % gel 1 applic topical BID Qty: 100 0RF esomeprazole magnesium [Nexium] 40 mg capsule,delayed release(DR/EC) 40 mg PO DAILY Qty: 90 3RF meclizine 25 mg tablet 25 mg PO TID PRN (Reason: dizziness or vertigo) Qty: 40 0RF pregabalin [Lyrica] 50 mg capsule 50 mg PO TID Qty: 270 1RF losartan 100 mg tablet 100 mg PO DAILY Qty: 100 1RF Belsomra 15 mg tablet 15 mg PO .HS PRN (Reason: insomnia) Qty: 90 1RF atorvastatin [Lipitor] 10 mg tablet 10 mg PO QHS Qty: 100 1RF <Yaa Salas MD - Last Filed: 07/15/24 09:04> Follow-up/Referrals: Yvonne Novoa MD [Primary Care Provider] - <Yaa Salas MD - Last Filed: 07/15/24 09:04>
[2024-07-14] MEDS: HYDROcodone/acetaminophen (*CRX) 5-325 MG TABLET 1 TAB PO (06:37)
[2024-07-14 07:02] VITALS: BP 117/88; PULSE 76; RESP 16; TEMP 36.6; O2SAT 100
[2024-07-14] MEDS: KETOROLAC 30 MG/ML VIAL (*BKC) 15 MG IM (07:08)
[2024-07-14 07:32] VITALS: BP 152/66; PULSE 79; RESP 19; O2SAT 99
[2024-07-14] MEDS: ACETAMINOPHEN 325 MG TABLET 650 MG PO (07:34)
[2024-07-14] MEDS: diazePAM (*CRX) 5 MG TABLET PO (07:35)
[2024-07-14] MEDS: LIDOCAINE 5% PATCH 1 PATCH TRANSDERM (07:35)
[2024-07-14 07:46] VITALS: BP 141/88; PULSE 73; RESP 16; TEMP 36.6; O2SAT 99
[2024-07-14 08:32] VITALS: BP 120/93; PULSE 75; RESP 14; TEMP 36.6; O2SAT 99
== END 2024-07-14 09:00 | disposition home or self-care (01) ==
PROVIDERS: Emergency Provider Student in an Organized Health Care Education/Training Program; PCP Family Medicine
DX: M54.50 Low back pain, unspecified (principal); G89.29 Other chronic pain; F41.9 Anxiety disorder, unspecified; I12.9 Hypertensive chronic kidney disease with stage 1 through stage 4 chronic kidney disease, or unspecified chronic kidney disease; N18.30 Chronic kidney disease, stage 3 unspecified; K21.9 Gastro-esophageal reflux disease without esophagitis; E78.5 Hyperlipidemia, unspecified; E66.01 Morbid (severe) obesity due to excess calories; Z68.42 Body mass index [BMI] 45.0-49.9, adult
CPT/HCPCS: 72131; 96372; 99284; A9270; J1885

== ENCOUNTER 2024-07-15 08:34 | Emergency (ER) | payer MEDICARE, SELFPAY ==
[2024-07-15 08:36] VITALS: BP 141/81; PULSE 97; RESP 16; TEMP 36.4; O2SAT 100
--- NOTE | 2024-07-15 10:44 | ED.BACK ---
HPI - Back Pain/Injury General Chief Complaint: Back Pain/Injury Stated Complaint: back pain Time Seen by Provider: 07/15/24 10:44 Focused HPI: This is a 84 year old female that presents to the ER for back pain. This has been worsening over the last 3 days. No recent injuries or trauma. Reports she has been going to a pain specialist for the last 6 months for this issue and is due for an ablation. She has not taken anything for pain today. Denies saddle anesthesia, bowel/bladder incontinence. GENERAL: Elderly, well-nourished, and in no acute distress. HEAD: Normocephalic, atraumatic. CHEST: Clear to auscultation. ?No respiratory distress. HEART: Regular rate and rhythm.? NEURO: ?Alert and oriented x3. Patient screened in triage and initial orders placed.? ?Additional care and disposition to be based upon?diagnostic testing and treatment. Source: patient Mode of arrival: wheelchair Limitations: no limitations Related Data Home Medications Medication Instructions Recorded Confirmed docusate sodium 100 mg capsule 100 mg PO DAILY 05/26/20 05/22/24 (Colace) Allergies Allergy/AdvReac Type Severity Reaction Status Date / Time pentazocine Allergy Intermediate HALLUCINATI Verified 05/22/24 12:13 ONS gabapentin Allergy Unknown Hives Verified 05/22/24 12:13 Review of Systems Review of Systems: CONSTITUTIONAL: Denies fever MUSCULOSKELETAL: Reports back pain, and myalgia. NEUROLOGIC: Denies numbness, or weakness. 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 Treadmill stress test negative for angina pectoris Vitamin D deficiency Surgical History Surgical History H/O dilation and curettage H/O hernia repair H/O shoulder replacement H/O sinus surgery History of cataract surgery History of cholecystectomy History of hysteroscopy History of knee replacement Family History Family History Father Acute myocardial infarction Mother Parkinsons Daughter Cervical cancer Other Family history of malignant neoplasm of cervix Social History Social History Smoking status: Never smoker Second hand tobacco smoke exposure: No Alcohol intake: never Substance use: never Substance use type: does not use Lack of Transportation: No Lack of Food: Never True Current Housing: I Have Housing Concerned About Future Housing: No Difficulty Paying Gas/Electric Bills: No Difficulty Paying for Meds: No Currently Unemployed: No Education: High School Diploma/GED Difficulty w/ Childcare or Family Care: No Living arrangements: with family Occupation/Education: retired Gender identity (if verbalized by the patient): Female Spiritual care concerns: No Agree to blood products: Yes Exam Narrative: GENERAL: Elderly, well-nourished, and in no acute distress. HEAD: Normocephalic, atraumatic. EYES: EOMI. CHEST: Clear to auscultation. No respiratory distress. No wheezes rales or rhonchi HEART: Regular rate and rhythm. No murmur heard. Normal peripheral pulses. BACK: No midline spinal tenderness EXTREMITIES: Normal range of motion. No edema. Normal DP pulses SKIN: Warm, dry, no rash. NEURO: No focal deficits. Alert and oriented x3. PSYCH: Normal mood and affect Course Course Emergency Course: patient and family agree with plan of care Vital Signs Vital signs: Vital Signs Temperature 97.6 F 07/15/24 08:36 Pulse Rate 97 07/15/24 08:36 Respiratory Rate 16 07/15/24 08:36 Blood Pressure 141/81 H 07/15/24 08:36 Pulse Oximetry 100 07/15/24 08:36 Temperature 98.3 F 07/15/24 11:08 Pulse Rate 77 07/15/24 13:36 Respiratory Rate 16 07/15/24 13:36 Blood Pressure 151/65 H 07/15/24 13:36 Pulse Oximetry 97 07/15/24 13:36 MDM - Back Pain/Injury MDM Narrative Medical decision making narrative: patient presents to the emergency department for pain management due to her chronic low back pain. She is currently following with pain management for this. Reports she has an appointment with them tomorrow. She was given a dose of oxycodone in the ER today with improvement in her pain. Will be given a short course of this for home. She does not have any new or concerning neurologic symptoms. She had a CT scan of her lumbar spine yesterday which was stable. 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 She was given warnings to return to the ER Medical Records Attestation: I reviewed the patient's medical records. Medical records narrative: IMPRESSION: 1. Severe lumbar spondylosis, stable from 01/08/2023. Critical Care Time Critical Care Time Critical Care Time: No Discharge Plan Discharge Clinical Impression: Chronic bilateral low back pain Qualifiers: Sciatica presence: unspecified whether sciatica present Qualified Code(s): M54.50 - Low back pain, unspecified Patient Disposition: Home, Self-Care Condition: Improved Instructions: Back Pain (ED) Additional Instructions: Return to the ER if you experience fever, weakness, numbness, bowel/bladder incontinence, or any other symptoms that are concerning to you Rest, use ice/heat, take anti-inflammatories (Aleve, Ibuprofen, Naproxen, etc) or Tylenol as needed for pain as well as muscle relaxer (Flexeril) as needed for pain. Muscle relaxers can make you drowsy, do not drive if you take this. Oxycodone as needed for pain. 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 Prescriptions: New oxycodone 5 mg tablet 5 mg PO Q8H PRN (Reason: pain) Qty: 7 0RF lidocaine 5 % adhesive patch,medicated 1 patch topical DAILY PRN (Reason: pain) Qty: 15 0RF Rx Instructions: leave on most painful area for up to 12 hrs No Action folic acid 0.8 mg capsule 0.8 mg PO DAILY Qty: 30 0RF cholecalciferol (vitamin D3) 25 mcg (1,000 unit) capsule 50 mcg PO DAILY Qty: 60 0RF docusate sodium [Colace] 100 mg capsule 100 mg PO DAILY aspirin [Adult Low Dose Aspirin] 81 mg tablet,delayed release (DR/EC) 81 mg PO DAILY Qty: 90 0RF cyclobenzaprine 10 mg tablet 10 mg PO BID PRN (Reason: muscle spasm) Qty: 20 0RF hydrocodone-acetaminophen 5-325 mg tablet 1 tablet PO Q8H PRN (Reason: pain) Qty: 14 0RF diclofenac sodium 3 % gel 1 applic topical BID Qty: 100 0RF esomeprazole magnesium [Nexium] 40 mg capsule,delayed release(DR/EC) 40 mg PO DAILY Qty: 90 3RF meclizine 25 mg tablet 25 mg PO TID PRN (Reason: dizziness or vertigo) Qty: 40 0RF pregabalin [Lyrica] 50 mg capsule 50 mg PO TID Qty: 270 1RF losartan 100 mg tablet 100 mg PO DAILY Qty: 100 1RF Belsomra 15 mg tablet 15 mg PO .HS PRN (Reason: insomnia) Qty: 90 1RF atorvastatin [Lipitor] 10 mg tablet 10 mg PO QHS Qty: 100 1RF Follow-up/Referrals: Yvonne Novoa MD [Primary Care Provider] -
[2024-07-15 11:08] VITALS: BP 152/92; PULSE 92; RESP 20; TEMP 36.8; O2SAT 100
[2024-07-15] MEDS: oxyCODONE HCL (*CRX) 5 MG TAB IR PO (11:15)
[2024-07-15] MEDS: KETOROLAC 30 MG/ML VIAL (*BKC) IM (11:15)
[2024-07-15 13:36] VITALS: BP 151/65; PULSE 77; RESP 16; O2SAT 97
== END 2024-07-15 13:39 | disposition home or self-care (01) ==
PROVIDERS: Emergency Provider Physician Assistant; PCP Family Medicine
DX: M54.50 Low back pain, unspecified (principal); G89.29 Other chronic pain; I12.9 Hypertensive chronic kidney disease with stage 1 through stage 4 chronic kidney disease, or unspecified chronic kidney disease; N18.30 Chronic kidney disease, stage 3 unspecified; E78.2 Mixed hyperlipidemia; E55.9 Vitamin D deficiency, unspecified; E66.813 Obesity, class 3; Z68.41 Body mass index [BMI] 40.0-44.9, adult; K21.9 Gastro-esophageal reflux disease without esophagitis; Z96.619 Presence of unspecified artificial shoulder joint; Z96.659 Presence of unspecified artificial knee joint; Z85.72 Personal history of non-Hodgkin lymphomas; Z90.49 Acquired absence of other specified parts of digestive tract; Z98.49 Cataract extraction status, unspecified eye; Z79.82 Long term (current) use of aspirin; Z79.899 Other long term (current) drug therapy
CPT/HCPCS: 96372; 99283; A9270; J1885

== ENCOUNTER 2024-08-29 07:41 | Outpatient (CLI) | payer MEDICARE, SELFPAY ==
--- NOTE | ~2024-08-29 | MR_ITS ---
MRI of the lumbar spine Clinical History: Back pain Technique: Axial T2-weighted images, and sagittal T1-weighted, T2-weighted, and and T2 fat-sat images were acquired. COMPARISON: 01/08/2023 Findings: No fracture seen. There is 3 mm retrolisthesis of L2 over L3. There is 3 mm anterolisthesis of L3 over L4. No suspicious bone marrow signal abnormality seen. At L1-L2, there is severe degenerative disc narrowing with small central disc protrusion. There is mo derate facet arthropathy. No leann central canal stenosis or neural foraminal narrowing. At L2-L3, there is moderate degenerative disc narrowing. There is minimal disc bulge with moderate fa cet arthropathy. There is mild central canal stenosis. There is severe right neural foraminal narrowi ng, and moderate to severe left neural foraminal narrowing. L3-L4, there is diffuse disc bulge with severe facet arthropathy, resulting in severe spinal canal st enosis/thecal sac compression. There is severe bilateral neural foraminal narrowing. At L4-L5, there is disc bulge/uncovering with severe facet arthropathy. No leann central canal stenos is. There is mild left neural foraminal narrowing. Right neural foramen preserved. At L5-S1, there is disc bulge and severe facet arthropathy. No central canal stenosis. Neural foramin a are preserved. Paravertebral soft tissues are unremarkable. Impression: Moderate to advanced degenerative spondylosis, as above, worst at L3-L4. Reviewed, dictated and finalized at [facility]. N ROOM [employer]SEM[employer]ER Impression: Moderate to advanced degenerative spondylosis, as above, worst at L3-L4.
== END 2024-08-29 07:42 | disposition home or self-care (01) ==
LOC: MICIMG 07:42
PROVIDERS: PCP Family Medicine; Visit Provider Physical Medicine & Rehabilitation Pain Medicine
DX: M47.896 Other spondylosis, lumbar region (principal)
CPT/HCPCS: 72148

== ENCOUNTER 2025-03-30 15:24 | Outpatient (CLI) | payer MEDICARE, SELFPAY ==
--- NOTE | ~2025-03-30 | MM_ITS ---
EXAMINATION: MM screening raphael BI w trudi HISTORY: Screening TECHNIQUE: Craniocaudal and mediolateral oblique 3-D tomosynthesis images were obtained and synthetic 2-D images were generated. CAD analysis was submitted and interpreted. COMPARISON: Comparison to multiple prior studies sequentially, with oldest reviewed study dated 01/28. BREAST PARENCHYMAL COMPOSITION: Not dense: There are scattered areas of fibroglandular density. FINDINGS: There is no evidence of suspicious mass, calcification, or architectural distortion to sugg est malignancy in either breast. There has been no suspicious interval change. IMPRESSION: 1. No mammographic evidence of malignancy. 2. Recommend routine screening mammography in one year. BI-RADS Category 1: Negative Reviewed, dictated and finalized at location [facility].
== END 2025-03-30 15:25 | disposition home or self-care (01) ==
LOC: MICIMG 15:25
PROVIDERS: PCP Family Medicine; Visit Provider Family Medicine
DX: Z12.31 Encounter for screening mammogram for malignant neoplasm of breast (principal)
CPT/HCPCS: 77063; 77067